=== PATIENT | female | born 1945 ===

== ENCOUNTER 2021-04-13 07:18 | Day surgery (SDC) | payer OTHER ==
[~2021-04-13 07:18] MED LIST: ATACAND16 MG PO; GLUCOTROL XL5 MG PO; GLUCOTROL10 MG PO; HYDROC PO; NORVASC2.5 MG PO; VITAMIN C60 MG PO; VITAMIN D310 MCG/1 M; VITAMIN D310 MCG/1 M PO; ZOCOR PO
== END 2021-04-13 14:20 | disposition home or self-care (01) ==
LOC: CIR.AMB 07:18
PROVIDERS: ATTEND Specialist
DX: N72 Inflammatory disease of cervix uteri (principal); I10 Essential (primary) hypertension; J45.909 Unspecified asthma, uncomplicated; E11.9 Type 2 diabetes mellitus without complications; F41.9 Anxiety disorder, unspecified